=== PATIENT | male | born 1940 | race Caucasian/White ===

== ENCOUNTER 2017-03-22 18:57 | Emergency (ER) | payer MEDICARE, MEDICAID ==
[~2017-03-22] VITALS: Ht 154.9 cm; Wt 60.9 kg
[2017-03-22] MEDS ORDERED: SODIUM CHLORIDE 0.9% 1000ML BAG (SEPSIS BOLUS) IV ONE (21:30)
[2017-03-22] MEDS ORDERED: LEVOFLOXACIN 750MG PREMIX 150 ML IV ONE (21:30)
[2017-03-22 21:31] LABS: BASOPHILS % 0.2 % (0.0-2.0); EOSINOPHILS % 0.1 % (0.0-5.0); HEMATOCRIT. 39.8 % (42.0-52.0); HEMOGLOBIN. 12.9 g/dL (14.0-18.0); LYMPHOCYTES % 15.4 % (20.0-50.0); MEAN CORPUSCULAR VOLUME 86.2 fL (80.0-94.0); MEAN PLATELET VOLUME 10.5 fl (7.4-10.4); MONOCYTES % 2.3 % (2.0-8.0); PLATELET 133 x1000/uL (130-400); RED BLOOD CELL COUNT 4.62 mill/uL (4.7-6.1); RED CELL DISTRIBUTION WIDTH 15.3 % (11.6-14.6)
[2017-03-22 21:42] LABS: CARBON DIOXIDE 28 mEq/L (21-32); CHLORIDE 109 mEq/L (98-107)
[2017-03-22 21:46] LABS: TROPONIN I 0.03 ng/mL (0.00-0.04)
[2017-03-22 22:00] VITALS: BP 135/82
== END 2017-03-23 00:38 | disposition left against medical advice (07) ==
LOC: ER 03-23 00:24 → CANBEDREQ 03-23 01:05
DX: J18.9 Pneumonia, unspecified organism (principal); R06.6 Hiccough; I10 Essential (primary) hypertension; I51.9 Heart disease, unspecified; Z88.6 Allergy status to analgesic agent; Z95.1 Presence of aortocoronary bypass graft; Z95.5 Presence of coronary angioplasty implant and graft; Z85.51 Personal history of malignant neoplasm of bladder; Z90.49 Acquired absence of other specified parts of digestive tract; Z92.21 Personal history of antineoplastic chemotherapy
CPT/HCPCS: 36415; 71010; 80053; 84484; 85025; 93005; 99285; J7030

== ENCOUNTER 2017-03-27 23:15 | Emergency (ER) | payer MEDICARE, MEDICAID ==
[~2017-03-27] VITALS: Ht 165.1 cm; Wt 61.0 kg
[2017-03-28] MEDS ORDERED: DICYCLOMINE 10 MG/5 ML ORAL SYR PO STA ×2 (00:22→02:27)
[2017-03-28] MEDS ORDERED: MAGNESIUM/ALUMINUM HYDROXIDE/SIMETHICONE 30ML UDC PO STA ×2 (00:22→02:27)
[2017-03-28 00:39] LABS: HEMATOCRIT. 37.2 % (42.0-52.0); HEMOGLOBIN. 12.2 g/dL (14.0-18.0); MEAN CORPUSCULAR HEMOGLOBIN 27.8 pg (28.0-32.0); MEAN CORPUSCULAR VOLUME 84.3 fL (80.0-94.0); MEAN PLATELET VOLUME 9.6 fl (7.4-10.4); PLATELET 77 x1000/uL (130-400); RED BLOOD CELL COUNT 4.41 mill/uL (4.7-6.1); RED CELL DISTRIBUTION WIDTH 14.5 % (11.6-14.6)
[2017-03-28 00:44] LABS: CHLORIDE 109 mEq/L (98-107)
[2017-03-28 00:52] LABS: CARBON DIOXIDE 26 mEq/L (21-32)
[2017-03-28 00:56] LABS: INR 1.1; PROTHROMBIN TIME 11.4 sec
[2017-03-28 02:42] VITALS: BP 141/64
[2017-03-28 02:54] LABS: PLATELET ESTIMATE DECREASED
== END 2017-03-28 03:35 | disposition home or self-care (01) ==
LOC: ER 23:15
DX: J18.9 Pneumonia, unspecified organism (principal); D72.829 Elevated white blood cell count, unspecified; E78.00 Pure hypercholesterolemia, unspecified; I10 Essential (primary) hypertension; Z85.51 Personal history of malignant neoplasm of bladder; Z92.21 Personal history of antineoplastic chemotherapy; Z88.6 Allergy status to analgesic agent; Z95.1 Presence of aortocoronary bypass graft
CPT/HCPCS: 36415; 71010; 80053; 83690; 85025; 85610; 93005; 99285

== ENCOUNTER 2017-07-27 17:30 | Inpatient (IN) | payer MEDICARE, MEDICAID ==
[~2017-07-27] VITALS: Ht 165.1 cm; Wt 57.6 kg
[2017-07-27 17:30] VITALS: BP 139/55
[2017-07-27 20:00] VITALS: BP 144/57
[2017-07-27] MEDS ORDERED: HYDRALAZINE HCL 25MG TABLET PO PRN (20:30)
[2017-07-27] MEDS ORDERED: SENNOSIDES 8.6MG TABLET PO PRN (20:30)
[2017-07-27] MEDS ORDERED: ONDANSETRON HCL 4MG TABLET PO PRN (20:30)
[2017-07-27] MEDS ORDERED: ACETAMINOPHEN 325MG TABLET PO PRN (20:30)
[2017-07-27] MEDS ORDERED: CLONIDINE 0.1MG TABLET PO PRN (20:30)
[2017-07-27] MEDS ORDERED: ACETAMINOPHEN 325MG SUPP PR PRN (20:30)
[2017-07-27] MEDS ORDERED: POLYETHYLENE GLYCOL 3350 (17GM) 1 DOSE PACK PO PRN (20:30)
[2017-07-27] MEDS ORDERED: MAGNESIUM HYDROXIDE 400MG/5ML 30ML UDC PO PRN (20:30)
[2017-07-27] MEDS ORDERED: DOCUSATE SODIUM 100MG CAPSULE PO PRN (20:30)
[2017-07-27] MEDS ORDERED: BISACODYL 10MG SUPP PR PRN (20:30)
[2017-07-27] MEDS: HEPARIN 5000 UNITS/ML VIAL SUBCUT SCH (21:00)
[2017-07-27] MEDS: ATORVASTATIN CALCIUM 20MG TABLET PO SCH (22:33)
[2017-07-27] MEDS ORDERED: HEPARIN 5000 UNITS/ML VIAL SUBCUT NR (22:45)
[2017-07-27] MEDS ORDERED: FAMOTIDINE 20MG TABLET PO NR (23:00)
[2017-07-28 06:55] LABS: BASOPHILS % 0.8 % (0.0-2.0); EOSINOPHILS % 9.4 % (0.0-5.0); HEMATOCRIT. 35.5 % (42.0-52.0); HEMOGLOBIN. 11.6 g/dL (14.0-18.0); LYMPHOCYTES % 25.3 % (20.0-50.0); MEAN CORPUSCULAR HEMOGLOBIN 29.3 pg (28.0-32.0); MEAN CORPUSCULAR VOLUME 89.5 fL (80.0-94.0); MEAN PLATELET VOLUME 9.8 fl (7.4-10.4); NEUTROPHILS % 56.5 % (40.0-76.0); PLATELET 152 x1000/uL (130-400); RED BLOOD CELL COUNT 3.96 mill/uL (4.7-6.1); RED CELL DISTRIBUTION WIDTH 15.1 % (11.6-14.6)
[2017-07-28 07:22] LABS: CARBON DIOXIDE 25 mEq/L (21-32); CHLORIDE 111 mEq/L (98-107); HDL CHOLESTEROL 35 mg/dL (40-59); LDL CHOLESTEROL 30 mg/dL (5-100)
[2017-07-28 08:00] VITALS: BP 122/62
[2017-07-28] MEDS ORDERED: PNEUMOC 13-VAL CONJ-DIP CRM/PF 0.5 ML DISP.SYRIN IM ONE (08:30)
[2017-07-28] MEDS ORDERED: ASPIRIN 325MG EC TABLET PO SCH (09:00)
[2017-07-28] MEDS: LISINOPRIL 5MG TABLET PO SCH (10:50)
[2017-07-28] MEDS: FAMOTIDINE 20MG TABLET PO SCH ×2 (10:51→21:10)
[2017-07-28] MEDS: CLOPIDOGREL 75MG TABLET PO SCH (10:51)
[2017-07-28] MEDS: HEPARIN 5000 UNITS/ML VIAL SUBCUT SCH ×2 (10:54→21:11)
[2017-07-28] MEDS: ASPIRIN 81MG EC TABLET PO SCH (11:04)
[2017-07-28 20:00] VITALS: BP 167/67
[2017-07-28] MEDS: ATORVASTATIN CALCIUM 20MG TABLET PO SCH (21:10)
[2017-07-29 08:00] VITALS: BP 124/51
[2017-07-29] MEDS: ASPIRIN 81MG EC TABLET PO SCH (08:21)
[2017-07-29] MEDS: CLOPIDOGREL 75MG TABLET PO SCH (08:21)
[2017-07-29] MEDS: FAMOTIDINE 20MG TABLET PO SCH ×2 (08:22→22:11)
[2017-07-29] MEDS: LISINOPRIL 5MG TABLET PO SCH (08:22)
[2017-07-29] MEDS: HEPARIN 5000 UNITS/ML VIAL SUBCUT SCH ×2 (08:23→22:11)
[2017-07-29] MEDS ORDERED: ASPIRIN 81MG EC TABLET PO SCH (09:00)
[2017-07-29] MEDS ORDERED: PNEUMOCOCCAL 23-VAL P-SAC VAC 0.5 ML IM ONE (10:00)
[2017-07-29 10:20] VITALS: BP 139/61
[2017-07-29] MEDS: FERROUS SULFATE 325MG TABLET PO SCH (10:23)
[2017-07-29] MEDS: METOPROLOL TARTRATE 25MG TABLET PO SCH ×2 (10:24→21:00)
[2017-07-29 20:00] VITALS: BP 122/48
[2017-07-29] MEDS: ATORVASTATIN CALCIUM 20MG TABLET PO SCH (22:11)
[2017-07-30 06:45] LABS: BASOPHILS % 0.9 % (0.0-2.0); EOSINOPHILS % 7.4 % (0.0-5.0); HEMATOCRIT. 36.8 % (42.0-52.0); HEMOGLOBIN. 11.9 g/dL (14.0-18.0); LYMPHOCYTES % 25.1 % (20.0-50.0); MEAN CORPUSCULAR HEMOGLOBIN 29.1 pg (28.0-32.0); MEAN CORPUSCULAR VOLUME 89.8 fL (80.0-94.0); MONOCYTES % 9.4 % (2.0-8.0); NEUTROPHILS % 57.2 % (40.0-76.0); PLATELET 171 x1000/uL (130-400); RED CELL DISTRIBUTION WIDTH 15.5 % (11.6-14.6)
[2017-07-30 07:40] LABS: CARBON DIOXIDE 26 mEq/L (21-32); CHLORIDE 109 mEq/L (98-107)
[2017-07-30 08:00] VITALS: BP 118/60
[2017-07-30] MEDS: CLOPIDOGREL 75MG TABLET PO SCH (08:52)
[2017-07-30] MEDS: FAMOTIDINE 20MG TABLET PO SCH ×2 (08:52→21:31)
[2017-07-30] MEDS: ASPIRIN 81MG EC TABLET PO SCH (08:52)
[2017-07-30] MEDS: METOPROLOL TARTRATE 25MG TABLET PO SCH ×2 (08:53→21:32)
[2017-07-30] MEDS: FERROUS SULFATE 325MG TABLET PO SCH (08:54)
[2017-07-30] MEDS: HEPARIN 5000 UNITS/ML VIAL SUBCUT SCH ×2 (08:54→21:32)
[2017-07-30 11:40] VITALS: BP 149/55
[2017-07-30] MEDS: LISINOPRIL 5MG TABLET PO SCH (11:49)
[2017-07-30 20:00] VITALS: BP 130/62
[2017-07-30] MEDS: ATORVASTATIN CALCIUM 20MG TABLET PO SCH (21:31)
[2017-07-31 08:00] VITALS: BP 151/57
[2017-07-31] MEDS: FAMOTIDINE 20MG TABLET PO SCH (09:56)
[2017-07-31] MEDS: FERROUS SULFATE 325MG TABLET PO SCH (09:56)
[2017-07-31] MEDS: CLOPIDOGREL 75MG TABLET PO SCH (09:56)
[2017-07-31] MEDS: ASPIRIN 81MG EC TABLET PO SCH (09:56)
[2017-07-31] MEDS: LISINOPRIL 5MG TABLET PO SCH (09:57)
[2017-07-31] MEDS: METOPROLOL TARTRATE 25MG TABLET PO SCH (09:57)
[2017-07-31] MEDS: HEPARIN 5000 UNITS/ML VIAL SUBCUT SCH (09:58)
[2017-07-31 11:14] VITALS: BP 135/67
== END 2017-07-31 13:15 | disposition home health service (06) | DRG 65 ==
PROVIDERS: ADMIT Psychiatry & Neurology Neurology; ATTEND Internal Medicine Geriatric Medicine
DX: I63.9 Cerebral infarction, unspecified (principal); G81.94 Hemiplegia, unspecified affecting left nondominant side; D63.8 Anemia in other chronic diseases classified elsewhere; E78.00 Pure hypercholesterolemia, unspecified; I10 Essential (primary) hypertension; E78.5 Hyperlipidemia, unspecified; D50.9 Iron deficiency anemia, unspecified; I45.10 Unspecified right bundle-branch block; I25.10 Atherosclerotic heart disease of native coronary artery without angina pectoris; Z85.51 Personal history of malignant neoplasm of bladder; Z95.5 Presence of coronary angioplasty implant and graft; Z95.1 Presence of aortocoronary bypass graft; Z86.73 Personal history of transient ischemic attack (TIA), and cerebral infarction without residual deficits; Z88.8 Allergy status to other drugs, medicaments and biological substances
CPT/HCPCS: 36415; 80048; 80061; 83036; 83540; 83550; 84443; 85025; 90732; 92523; 92610; 93005; 93970; 97116; 97162; 97167; 97530; 97532; 97535; J1644